=== PATIENT | female | born 1980 ===

== ENCOUNTER 2020-06-17 15:38 | Emergency (ER) | payer MEDICAID ==
[~2020-06-17] VITALS: Ht 170.2 cm; Wt 81.8 kg
[2020-06-17 16:00] VITALS: BP 162/100; Ht 170.2 cm; Wt 81.8 kg
[2020-06-17] MEDS ORDERED: FLUTICASONE PRO16 GM NASAL (17:48)
[2020-06-17] MEDS ORDERED: ZYRTEC10 MG PO (17:48)
== END 2020-06-17 18:04 | disposition home or self-care (01) ==
LOC: D.ER 15:38
DX: R51.9 Headache, unspecified (principal); J34.2 Deviated nasal septum; J32.9 Chronic sinusitis, unspecified; H53.9 Unspecified visual disturbance